=== PATIENT | male | born 1970 | race Hispanic/Latino ===

== ENCOUNTER 2017-09-30 07:23 | Emergency (ER) | payer BC ==
[2017-09-30 09:02] VITALS: BP 145/103
[2017-09-30] MEDS ORDERED: NORCO 10/325 PO ONE (10:41)
[2017-09-30] MEDS ORDERED: TORADOL IM ONE (10:41)
--- NOTE | 2017-09-30 11:06 | Emergency Department Report ---
ED Back Pain/Injury HPI - General Chief Complaint: Back Pain/Injury Stated Complaint: SICATICA Time Seen by Provider: 09/30/17 09:58 Source: patient Limitations: No Limitations - History of Present Illness Initial Comments: 46-year-old male past medical history kidney stones presents with one month of worsening lower back pain radiating through left hip and left leg. Awake alert and oriented 3. Pain is sharp. Patient is ambulatory. Denies bladder or bowel incontinence, denies paresthesias or saddle paresthesias. 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 He states he has had intermittent back pain in the past. Denies any direct trauma to the spine or any recent falls. MD Complaint: back pain Onset/Timin -: month(s) Place: home, work Severity: moderate Severity scale (0 -10): 5 Quality: aching Consistency: constant Improves With: immobilization, medication Worsens With: none Context: turning/twisting, bending Associated Symptoms: denies other symptoms - Related Data Previous Rx's Medication Instructions Recorded Last Taken Type Acetaminophen/Codeine [Tylenol 1 tab PO Q6H PRN #12 tab 09/30/17 Unknown Rx /Codeine # 3 tab] Naproxen [Naprosyn TAB] 375 mg PO BID PRN #20 tablet 09/30/17 Unknown Rx Allergies Allergy/AdvReac Type Severity Reaction Status Date / Time No Known Allergies Allergy Unverified 09/30/17 09:01 ED Review of Systems ROS: Stated complaint: SICATICA Other details as noted in HPI Constitutional: denies: chills, fever Eyes: denies: eye pain, eye discharge, vision change ENT: denies: ear pain, throat pain Respiratory: denies: cough, shortness of breath, wheezing Cardiovascular: denies: chest pain, palpitations Endocrine: no symptoms reported Gastrointestinal: denies: abdominal pain, nausea, diarrhea Genitourinary: denies: urgency, dysuria Musculoskeletal: back pain. denies: joint swelling, arthralgia Skin: denies: rash, lesions Neurological: denies: headache, weakness, paresthesias Psychiatric: denies: anxiety, depression Hematological/Lymphatic: denies: easy bleeding, easy bruising ED Past Medical Hx - Past Medical History Previous Medical History?: No - Surgical History Past Surgical History?: No - Social History Smoking Status: Current Every Day Smoker Substance Use Type: Alcohol - Medications Home Medications: Home Medications Medication Instructions Recorded Confirmed Last Taken Type Acetaminophen/Codeine [Tylenol 1 tab PO Q6H PRN #12 tab 09/30/17 Unknown Rx /Codeine # 3 tab] Naproxen [Naprosyn TAB] 375 mg PO BID PRN #20 tablet 09/30/17 Unknown Rx ED Physical Exam - General Limitations: No Limitations General appearance: alert, in no apparent distress - Head Head exam: Present: atraumatic, normocephalic - Eye Eye exam: Present: normal appearance, PERRL, EOMI - ENT ENT exam: Present: mucous membranes moist - Neck Neck exam: Present: normal inspection - Respiratory Respiratory exam: Present: normal lung sounds bilaterally. Absent: respiratory distress - Cardiovascular Cardiovascular Exam: Present: regular rate, normal rhythm. Absent: systolic murmur, diastolic murmur, rubs, gallop - GI/Abdominal GI/Abdominal exam: Present: soft, normal bowel sounds - Rectal Rectal exam: Present: deferred - Extremities Exam Extremities exam: Present: normal inspection - Back Exam Back exam: Present: normal inspection - Neurological Exam Neurological exam: Present: alert, oriented X3, CN II-XII intact, normal gait - Expanded Neurological Exam Expanded Patient oriented to: Present: person, place, time Cranial nerves: EOM's Intact: Normal, Facial Sensation: Normal Sensory exam: Upper Extremity Light Touch: Normal, Lower Extremity Light Touch: Normal Motor strength exam: RUE: 5, LUE: 5, RLE: 5, LLE: 5 Best Eye Response ([place]): (4) open spontaneously Best Motor Response ([place]): (6) obeys commands Best Verbal Response ([place]): (5) oriented Quintin Total: 15 - Psychiatric Psychiatric exam: Present: normal affect, normal mood - Skin Skin exam: Present: warm, dry, intact, normal color. Absent: rash ED Course Vital Signs 09/30/17 09:00 Pulse Rate 88 Respiratory 16 Rate Blood Pressure 145/103 O2 Sat by Pulse 98 Oximetry ED Medical Decision Making - Medical Decision Making A/P: Lower back pain, degenerative spinal disease, spinal process fracture 1- x-ray shows severe degenerative lower back disease and chronic transverse process fractures at L1 and L3 with some other deformities 2- naproxen when necessary, short course Tylenol 3 when necessary 3- patient referred to orthopedics and primary care, Dr. Velasquez neurosurgeon 4- no clinical signs of cauda equina. Patient is ambulatory no saddle paresthesias no bladder or bowel incontinence. Strength 5 out of 5 in both lower extremities distal deep tendon reflexes intact 6- patient eloped before I could provide him with results of his x-ray and discharge paperwork. I called that number listed no answer Critical care attestation.: If time is entered above; I have spent that time in minutes in the direct care of this critically ill patient, excluding procedure time. ED Disposition Clinical Impression: Sciatica of left side, Chronic fracture Lower back pain Qualifiers: Chronicity: acute Back pain laterality: left Sciatica presence: with sciatica Sciatica laterality: sciatica of left side Qualified Code(s): M54.42 - Lumbago with sciatica, left side Disposition: TO HOME OR SELFCARE Is pt being admited?: No Does the pt Need Aspirin: No Condition: Stable Instructions: Sciatica (ED), Back Pain (ED), Chronic Back Pain (ED) Prescriptions: Acetaminophen/Codeine [Tylenol /Codeine # 3 tab] 1 tab PO Q6H PRN #12 tab PRN Reason: Pain Naproxen [Naprosyn TAB] 375 mg PO BID PRN #20 tablet PRN Reason: Pain Referrals: FRANSISCA PLASENCIA MD [Staff Physician] - 3-5 Days [facility] [Provider Group] - 3-5 Days [facility] [Provider Group] - 3-5 Days Forms: Accompanied Note, Work/School Release Form(ED) Time of Disposition: 12:16
[2017-09-30 11:10] LABS: Bacteria,Urine 1+ /HPF (Negative); Bilirubin,Urine NEG (Negative); Blood,Urine NEG (Negative); Color,Urine Yellow (Yellow); Mucus,Urine 1+ /HPF; Protein,Urine <15 mg/dL mg/dL (Negative); Urobilinogen,Urine < 2.0 mg/dL (<2.0)
[2017-09-30 11:14] LABS: WBC,Urine < 1.0 /HPF (0.0-6.0)
--- NOTE | 2017-09-30 11:33 | XRay Report ---
LEFT HIP, 2 views: History: Left hip pain. The bony architecture is intact without evidence of fracture or dislocation. No significant soft tissue abnormality is seen. IMPRESSION: Unremarkable left hip.
--- NOTE | 2017-09-30 11:33 | XRay Report ---
LUMBOSACRAL SPINE, 3 VIEWS: History: Lower back pain Findings: Mild to moderate multilevel degenerative disc disease and facet arthropathy are identified. L3-4, L4-5 and L5-S1 with the most affected levels. Chronic appearing superior endplate deformities are suspected at T11 and T12. Chronic left transverse process fractures are identified at L1 and L3. No acute fracture is appreciated. The visualized upper sacrum and SI joints are unremarkable. Impression: Lumbar spondylosis as described. Chronic fractures as noted above.
== END 2017-09-30 13:00 | disposition home or self-care (01) ==
LOC: ED 07:23
DX: S32.018A Other fracture of first lumbar vertebra, initial encounter for closed fracture (principal); S32.038A Other fracture of third lumbar vertebra, initial encounter for closed fracture; M54.42 Lumbago with sciatica, left side; F17.200 Nicotine dependence, unspecified, uncomplicated; X50.1XXA Overexertion from prolonged static or awkward postures, initial encounter; Y93.89 Activity, other specified; Y99.8 Other external cause status; Y92.009 Unspecified place in unspecified non-institutional (private) residence as the place of occurrence of the external cause
CPT/HCPCS: 72100; 73502; 81001; 96372; 99283; J1885

== ENCOUNTER 2021-10-23 03:53 | Emergency (ER) | payer SELFPAY ==
[2021-10-23] MEDS ORDERED: MORPHINE 4 MG/1 ML INJ ONE (04:05)
[2021-10-23] MEDS ORDERED: MORPHINE 4 MG/1 ML INJ IV ONE (04:07)
[2021-10-23] MEDS ORDERED: TETANUS,DIPHTHERIA TOXOID ADULT 0.5 ML INJ IM ONE (04:10)
[2021-10-23] MEDS ORDERED: SODIUM CHLORIDE 0.9% 1000 ML 1,000 ML IV ONE (04:12)
[2021-10-23] MEDS ORDERED: TETANUS,DIPH,PERTUSS(ACELL) VACCINE 0.5 ML SYRINGE IM ONE (04:14)
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
[2021-10-23] MEDS ORDERED: MORPHINE 2 MG/1 ML INJ IM ONE (04:24)
--- NOTE | 2021-10-23 04:44 | XRay Report ---
CHEST 1 VIEW INDICATION / CLINICAL INFORMATION: Altered mental status. COMPARISON: None available. FINDINGS: SUPPORT DEVICES: None. HEART / MEDIASTINUM: No significant abnormality. LUNGS / PLEURA: The lungs are clear. No pneumothorax. BONES: No significant osseous abnormality. ADDITIONAL FINDINGS: No significant additional findings. IMPRESSION: 1. No active cardiopulmonary disease. Signer Name: Fidencio Whitley II, MD Signed: 10/23/2021 4:39 AM Workstation Name: [id number]
[2021-10-23] MEDS ORDERED: SUCCINYLCHOLINE CHLORIDE 200 MG/10 ML INJ MDV ONE (04:50)
[2021-10-23] MEDS ORDERED: ETOMIDATE 20 MG/10 ML INJ IV ONE ×2 (04:50→05:37)
[2021-10-23] MEDS ORDERED: fentaNYL 100 MCG/2 ML INJ IV ONE (05:20)
[2021-10-23] MEDS ORDERED: MIDAZOLAM/NS Drip 100mg/100ml 100 MG/100 ML BAG IV SCH ×2 (05:21→06:00)
[2021-10-23] MEDS ORDERED: SUCCINYLCHOLINE CHLORIDE 200 MG/10 ML INJ MDV IV ONE (05:38)
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
[2021-10-23 05:49] VITALS: BP 131/79
[2021-10-23] MEDS ORDERED: fentaNYL 100 MCG/2 ML INJ IV PRN (05:53)
[2021-10-23] MEDS ORDERED: fentaNYL DRIP Premix 2,000 MCG/100 ML BAG IV SCH (06:00)
[2021-10-23 06:13] LABS: ABG Base Excess -4.2 mmol/L (-2.0-3.0); ABG HCO3 21.6 mmol/L (20.0-26.0); ABG Methemoglobin 0.5 % (0.0-1.5); ABG PCO2 42.5 mm Hg; ABG PH 7.325 pH Units (7.350-7.450); ABG PO2 170.9 mm Hg (80.0-90.0)
== END 2021-10-23 06:46 | disposition short-term general hospital (02) ==
LOC: ED 03:53
DX: T20.00XA Burn of unspecified degree of head, face, and neck, unspecified site, initial encounter (principal); T22.20XA Burn of second degree of shoulder and upper limb, except wrist and hand, unspecified site, initial encounter; T59.811A Toxic effect of smoke, accidental (unintentional), initial encounter; Y92.89 Other specified places as the place of occurrence of the external cause; X08.8XXA Exposure to other specified smoke, fire and flames, initial encounter; Y93.89 Activity, other specified; Y99.8 Other external cause status
CPT/HCPCS: 31500; 71045; 82803; 90471; 90714; 90715; 96365; 96368; 96375; 96376; 99285; J0330; J2250; J2270; J2704; J3010; J3490; J7030; 94002; Q0162